=== PATIENT | male | born 1995 | race Caucasian/White ===

== ENCOUNTER 2021-07-23 22:44 | Emergency (ER) | payer BC ==
[2021-07-23 22:49] VITALS: BP 147/91; PULSE 84; RESP 18; TEMP 99.1
[2021-07-23] MEDS ORDERED: PENICILLIN VK 500MG STARTER 4 TAB BTL PO STA (23:13)
[2021-07-23] MEDS ORDERED: IBUPROFEN 800 MG TAB PO STA (23:14)
--- NOTE | 2021-07-23 23:20 | ED ---
General Adult HPI - General Chief complaint: Dental/Oral Stated complaint: Dental Abscess Time Seen by Provider: 07/23/21 23:10 Source: patient, RN notes reviewed, old records reviewed Mode of arrival: ambulatory Limitations: no limitations - History of Present Illness Initial comments: 25-year-old male presents with complaints of dental pain with abscess for past 2 days. Patient states that today the abscess popped and drained on its own. He is here for antibiotics. He does have an appointment in a couple of days with the dentist. States he has chronic dental caries. He is a smoker and does smoke marijuana. Denies any drug use. He denies any fevers, nausea vomiting or diarrhea. No headache -: days(s) (2) Location: mouth (dental abscess ) Severity scale (1-10): 9 Quality: aching Consistency: constant Associated Symptoms: denies other symptoms Treatments Prior to Arrival: none - Related Data Previous Rx's Medication Instructions Recorded Penicillin V Potassium [Pen Vee K] 500 mg PO QID #40 tablet 07/23/21 Allergies Allergy/AdvReac Type Severity Reaction Status Date / Time codeine Allergy Unknown Verified 07/23/21 22:49 Childhood Review of Systems ROS Statement: Those systems with pertinent positive or pertinent negative responses have been documented in the HPI. ROS Other: All systems not noted in ROS Statement are negative. Past Medical History Past Medical History: No Reported History History of Any Multi-Drug Resistant Organisms: None Reported Past Surgical History: No Surgical Hx Reported Past Psychological History: No Psychological Hx Reported Smoking Status: Current every day smoker Past Alcohol Use History: Occasional Past Drug Use History: Marijuana General Exam Limitations: no limitations General appearance: alert, in no apparent distress Head exam: Present: atraumatic, normocephalic Eye exam: Present: normal appearance. Absent: scleral icterus, conjunctival injection ENT exam: Present: mucous membranes moist Expanded Teeth exam: Present: dental caries (17-20), gingival enlargement (gingival abscess tooth 20) Neck exam: Present: normal inspection, full ROM. Absent: meningismus, thyromegaly Respiratory exam: Present: normal lung sounds bilaterally. Absent: respiratory distress, accessory muscle use Cardiovascular Exam: Present: regular rate Neurological exam: Present: alert, oriented X3, normal gait Psychiatric exam: Present: normal affect, normal mood Skin exam: Present: warm. Absent: cyanosis, diaphoretic Course Vital Signs 07/23/21 22:46 Temperature 99.1 F Pulse Rate 84 Respiratory 18 Rate Blood Pressure 147/91 O2 Sat by Pulse 99 Oximetry Medical Decision Making - Medical Decision Making 25-year-old male presents with right lower gingival tenderness for the past 2 days. States that he has poor dentition and has an appointment with the dentist in 2 days. States he had an abscess that popped and drained yesterday. Patient has multiple severe dental caries teeth 18-20. Patient does have a low-grade fever of 99.1. He was placed on Pen-Vee K directed to follow up with his dentist in 2 days as scheduled. He stated for pain. Return to emergency room with any new or worsening symptoms including increased pain, fevers nausea or vomiting. Stop smoking as smoking impairs ability to fight infection. Disposition Clinical Impression: Dental abscess Disposition: HOME SELF-CARE Condition: Good Instructions (If sedation given, give patient instructions): Dental Abscess (ED) Additional Instructions: Take antibiotics as prescribed in addition to Motrin for inflammation and pain. Follow-up with the dentist next week. Stop smoking, smoking will inhibit healing. Return to the emergency room with any new or worsening symptoms including increased pain or fevers. Prescriptions: Penicillin V Potassium [Pen Vee K] 500 mg PO QID #40 tablet Is patient prescribed a controlled substance at d/c from ED?: No Referrals: None,Stated [Primary Care Provider] - 1-2 days Time of Disposition: 23:20
[2021-07-23] MEDS ORDERED: PENICILLIN V POTASSIUM 250 MG TAB PO ONE (23:30)
== END 2021-07-23 23:49 | disposition home or self-care (01) ==
LOC: EC 22:44
DX: K04.7 Periapical abscess without sinus (principal); F17.200 Nicotine dependence, unspecified, uncomplicated; Z88.5 Allergy status to narcotic agent
CPT/HCPCS: 99282